=== PATIENT | male | born 2000 | race Caucasian/White ===

== ENCOUNTER 2019-08-07 09:30 | Emergency (ER) | payer SELFPAY ==
[~2019-08-07] VITALS: Ht 170.2 cm; Wt 77.1 kg
--- NOTE | 2019-08-07 09:30 | NUR ---
Patient BIB [facility] for pre-booking medical screening exam, transferred to chair B. RN evaluating patient.
[2019-08-07 09:32] VITALS: BP 123/76
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
[2019-08-07 10:10] VITALS: BP 118/80
--- NOTE | 2019-08-07 10:10 | NUR ---
DISCHARGE INSTRUCTIONS PROVIDED TO PATIENT AND GIVEN TO OFFICER. PATIENT EXAMINED BY DR. FOLEY. PATIENT MEDICALLY CLEARED AND RELEASED IN CUSTODY IN STABLE CONDITION TO BE OKAY TO BOOK TO [facility]. ORIGINAL PRE-BOOK FORM GIVEN TO OFFICER MONSERRAT.
== END 2019-08-07 10:10 ==
LOC: MED 09:30
DX: S00.83XA Contusion of other part of head, initial encounter (principal); Z02.89 Encounter for other administrative examinations; V89.2XXA Person injured in unspecified motor-vehicle accident, traffic, initial encounter; Y93.89 Activity, other specified; Y92.411 Interstate highway as the place of occurrence of the external cause; Y99.8 Other external cause status
CPT/HCPCS: 99283